=== PATIENT | female | born 2000 | race Caucasian/White ===

== ENCOUNTER 2022-11-10 21:30 | Emergency (ER) | payer MEDICAID ==
[2022-11-10] MEDS ORDERED: Lactulose Soln 10 GM/15 ML 15 ML UD Cup ONE (23:30)
== END 2022-11-10 23:39 | disposition home or self-care (01) ==
LOC: LB.ED 21:30
DX: K59.00 Constipation, unspecified (principal); Z90.49 Acquired absence of other specified parts of digestive tract
CPT/HCPCS: 36415; 74176; 80053; 81001; 81025; 83690; 85025; 99284; A9270; 99283

== ENCOUNTER 2024-07-30 16:43 | Emergency (ER) | payer BC, MEDICAID ==
[2024-07-30] MEDS: Ketorolac 30 MG/ML SDV IM ONE (17:01)
[2024-07-30] MEDS: Ketorolac 30 MG/ML SDV ONE (17:15)
[2024-07-30 17:34] LABS: BASOPHILS ABSOLUTE AUTO 0.01 K/uL (0.02-0.10); BASOPHILS PERCENT AUTO 0.2 % (0.0-0.5); EOSINOPHILS ABSOLUTE AUTO 0.01 K/uL (0.04-0.40); EOSINOPHILS PERCENT AUTO 0.2 % (1.0-5.0); HEMOGLOBIN 13.1 g/dL (11.5-16.5); LYMPHOCYTES ABSOLUTE AUTO 0.17 K/uL (1.50-4.00); LYMPHOCYTES PERCENT AUTO 2.6 % (20.0-40.0); MEAN CORPUSCULAR HEMOGLOBIN 30.3 pg (27.0-32.0); MEAN CORPUSCULAR HGB CONC 34.5 g/dL (31.0-35.0); MEAN CORPUSCULAR VOLUME 88 fL (76-96); MEAN PLATELET VOLUME 9.3 fL (6.0-10.0); MONOCYTES ABSOLUTE AUTO 0.57 K/uL (0.20-0.80); MONOCYTES PERCENT AUTO 8.7 % (3.0-10.0); NEUTROPHILS ABSOLUTE AUTO 5.77 K/uL (2.00-7.50); NEUTROPHILS PERCENT AUTO 88.3 % (45.0-70.0); PLATELET COUNT,PLT 215 K/uL (150-500); RED BLOOD CELL COUNT 4.33 M/uL (3.80-5.80); RED CELL DISTRIBUTION WIDTH 12.1 % (11.0-16.0); WHITE BLOOD CELL COUNT,WBC 6.5 K/uL (4.0-11.0)
[2024-07-30 17:59] LABS: A/G RATIO 1.4 (0.8-2.0); ALBUMIN 4.2 g/dL (3.4-5.0); ANION GAP 13.6 mmol/L (5.0-15.0); BILIRUBIN TOTAL 0.6 mg/dL (0.0-1.0); BUN/CREATININE RATIO 14.9 (6-25); CALCIUM 9.1 mg/dL (8.5-10.1); CARBON DIOXIDE,CO2 23.7 mmol/L (21.0-32.0); CREATININE 0.87 mg/dL (0.55-1.02); EST CRCL DRUG DOSING (CG) 100.82 mL/min; POTASSIUM,K 4.3 mmol/L (3.5-5.1); PROTEIN TOTAL,TP 7.3 g/dL (6.4-8.2)
[2024-07-30 19:02] LABS: APPEARANCE,URINE TURBID (CLEAR); COLOR,URINE YELLOW; GLUCOSE,URINE NEGATIVE (NEGATIVE); KETONES,URINE 15 mg/dL (NEGATIVE); PH,URINE 5.5 (5.0-8.0); PROTEIN,URINE TRACE mg/dL (NEGATIVE)
[2024-07-30 19:03] LABS: BILIRUBIN,URINE NEGATIVE (NEGATIVE); LEUKOCYTE ESTERASE,URINE SMALL (NEGATIVE); NITRITE,URINE NEGATIVE (NEGATIVE); OCCULT BLOOD,URINE NEGATIVE (NEGATIVE); UROBILINOGEN,URINE 0.2 E.U./dL (0.2-1.0)
[2024-07-30 19:04] LABS: AMORPHOUS SEDIMENT,URINE MODERATE /HPF; RBC,URINE 0-5 /HPF; WBC,URINE 0-5 /HPF
[2024-07-30 19:23] LABS: INFLUENZA A NAA POSITIVE (NEGATIVE); INFLUENZA B NAA NEGATIVE (NEGATIVE); RESPIRATORY SYNCYTIAL VIR NAA NEGATIVE (NEGATIVE)
[2024-07-30 19:28] LABS: CORONAVIRUS COVID-19 NAA NEGATIVE (NEGATIVE)
== END 2024-07-30 19:46 | disposition home or self-care (01) ==
LOC: LB.ED 16:43
DX: J10.1 Influenza due to other identified influenza virus with other respiratory manifestations (principal); R10.9 Unspecified abdominal pain; Z90.49 Acquired absence of other specified parts of digestive tract
CPT/HCPCS: 0241U; 36415; 74176; 80053; 81001; 81025; 83690; 85025; 87086; 99283; J1885